=== PATIENT | male | born 1955 | race Caucasian/White ===

== ENCOUNTER → 2017-06-08 | Outpatient (CLI) | payer OTHER ==
[~2017-06-08] MED LIST: LIDOCAINE VISC 2% SOLN 15 ML UDC ONE
== END ==
LOC: WCC 09:05
PROVIDERS: ATTEND Family Medicine
DX: I87.331 Chronic venous hypertension (idiopathic) with ulcer and inflammation of right lower extremity (principal); L97.211 Non-pressure chronic ulcer of right calf limited to breakdown of skin; G89.29 Other chronic pain; R60.0 Localized edema; I87.2 Venous insufficiency (chronic) (peripheral); G90.09 Other idiopathic peripheral autonomic neuropathy; E03.9 Hypothyroidism, unspecified
CPT/HCPCS: 87071; 87075; 87186; 87205

== ENCOUNTER → 2017-06-15 | Outpatient (CLI) | payer OTHER ==
[~2017-06-15] MED LIST changes: -LIDOCAINE VISC 2% SOLN 15 ML UDC ONE; +MINERAL OIL/PETROLAT/GLYCERI 6OZ BTL ONE; +MUPIROCIN 2% OINT 22 GM TUBE ONE
== END ==
LOC: WCC 11:55
PROVIDERS: ATTEND Family Medicine
DX: I87.331 Chronic venous hypertension (idiopathic) with ulcer and inflammation of right lower extremity (principal); L97.211 Non-pressure chronic ulcer of right calf limited to breakdown of skin; G89.29 Other chronic pain; R60.0 Localized edema; I87.2 Venous insufficiency (chronic) (peripheral); G90.09 Other idiopathic peripheral autonomic neuropathy; E03.9 Hypothyroidism, unspecified

== ENCOUNTER → 2017-06-22 | Outpatient (CLI) | payer BC ==
[~2017-06-22] MED LIST changes: +LIDOCAINE VISC 2% SOLN 15 ML UDC ONE; -MINERAL OIL/PETROLAT/GLYCERI 6OZ BTL ONE
== END ==
LOC: WCC 10:01
PROVIDERS: ATTEND Family Medicine
DX: I87.331 Chronic venous hypertension (idiopathic) with ulcer and inflammation of right lower extremity (principal); L97.211 Non-pressure chronic ulcer of right calf limited to breakdown of skin; B95.7 Other staphylococcus as the cause of diseases classified elsewhere; G89.29 Other chronic pain; I87.2 Venous insufficiency (chronic) (peripheral); R60.0 Localized edema; E03.9 Hypothyroidism, unspecified; G90.09 Other idiopathic peripheral autonomic neuropathy

== ENCOUNTER 2024-06-23 11:17 | Emergency (ER) | payer BC, MEDICARE ==
[~2024-06-23] VITALS: Ht 162.6 cm; Wt 52.2 kg
[2024-06-23 11:41] VITALS: RESP 19
[2024-06-23] MEDS ORDERED: SODIUM CHLORIDE FLUSH 10 ML SYR IV PRN (12:15)
[2024-06-23 12:58] LABS: BASOPHILS % 1.9 % (0.0-1.0); HEMATOCRIT 26.5 % (38.2-49.6); HEMOGLOBIN 8.2 g/dL (14.0-18.0); LYMPHOCYTES # (AUTO) 0.4 (1.0-3.2); LYMPHOCYTES % 22.7 % (18.0-39.1); MEAN CORPUSCULAR HEMOGLOBIN 27.7 pg (28-32); MEAN CORPUSCULAR HGB CONC 30.9 g/dL (31-35); MEAN CORPUSCULAR VOLUME 89.5 fL (81-99); MONOCYTES # (AUTO) 0.2 (0.2-0.8); NEUTROPHILS % 62.4 % (38.7-80.0); RED BLOOD COUNT 2.96 x10e6/uL (4.3-5.7); RED CELL DISTRIBUTION WIDTH 13.4 % (11.7-14.4)
[2024-06-23 13:02] LABS: PLATELET COUNT 45 x10e3/uL (140-360); WHITE BLOOD COUNT 1.54 x10e3/uL (4.8-10.8)
[2024-06-23 13:12] LABS: CORONAVIRUS COVID-19 AG NEGATIVE (NEGATIVE); INFLUENZA A AG NEGATIVE (NEGATIVE); INFLUENZA B AG NEGATIVE (NEGATIVE)
[2024-06-23 13:15] LABS: ALBUMIN 3.2 g/dL (3.5-5.0); ALBUMIN/GLOBULIN RATIO 1.1 (0.8-2.0); ALKALINE PHOSPHATASE 149 IU/L (40-150); ANION GAP 14.1 mmol/L (8-16); BILIRUBIN,TOTAL 1.7 mg/dL (0.2-1.2); BLOOD UREA NITROGEN 14 mg/dL (7-26); BUN/CREATININE RATIO 13 (6-25); CALCIUM 8.6 mg/dL (8.4-10.2); CARBON DIOXIDE 24 mmol/L (22-29); CHLORIDE 104 mmol/L (98-107); CREATININE, SERUM 1.08 mg/dL (0.72-1.25); EST GLOMERULAR FILTRATION RATE 75 ML/MIN (>=60); GLUCOSE 89 mg/dL (74-118); POTASSIUM 4.1 mmol/L (3.5-5.1); SODIUM 138 mmol/L (136-145); TOTAL PROTEIN 6.2 g/dL (6.5-8.1)
[2024-06-23 13:16] LABS: ALANINE AMINOTRANSFERASE < 6 IU/L (0-55)
[2024-06-23 13:20] LABS: TROPONIN I 0.001 ng/mL (0-0.300)
[2024-06-23] MEDS: KETOROLAC TROMETHAMINE 30 MG/ML VIAL IV ONE (13:23)
[2024-06-23] MEDS ORDERED: MORPHINE 44 MG/1 ML PO (13:59)
[2024-06-23] MEDS ORDERED: MS CONTIN15 MG PO (14:11)
[2024-06-23 14:21] VITALS: PULSE 69; TEMP 98
[2024-06-23] MEDS ORDERED: SODIUM CHLORIDE 0.9% 1000ML 1,000 ML ONE (14:32)
[2024-06-23] MEDS: Morphine 4mg INJECTION 4 MG/ML INJ IV ONE (15:30)
[2024-06-23] MEDS: SODIUM CHLORIDE 0.9% 1000ML 1,000 ML IV ONE (15:40)
[2024-06-23 17:04] LABS: BILIRUBIN,URINE SMALL (NEGATIVE); CLARITY,URINE CLEAR (CLEAR); COLOR,URINE YELLOW (YELLOW); GLUCOSE, URINE NEGATIVE (NEGATIVE); KETONES,URINE TRACE (NEGATIVE); LEUKOCYTE ESTERASE ,URINE NEGATIVE (NEGATIVE); NITRITE,URINE NEGATIVE (NEGATIVE); PH,URINE 7.5 (5 - 7); PROTEIN,URINE DIPSTICK 2+ (NEGATIVE); URINE UROBILINOGEN 2 mg/dL (0.2 - 1)
[2024-06-23 17:15] LABS: BACTERIA,URINE RARE /HPF; EPITHELIAL CELLS,URINE FEW /LPF; HYALINE CASTS 0-1 (0-1)
[2024-06-23 17:16] LABS: MUCUS,URINE MANY (RARE)
[2024-06-23 18:17] VITALS: BP 115/84; PULSE 71; RESP 16; TEMP 98.6; O2SAT 95
== END 2024-06-23 19:00 ==
LOC: ER 11:33
DX: R60.9 Edema, unspecified (principal); D47.9 Neoplasm of uncertain behavior of lymphoid, hematopoietic and related tissue, unspecified; G62.9 Polyneuropathy, unspecified; D61.818 Other pancytopenia; R29.6 Repeated falls; Z11.52 Encounter for screening for COVID-19; R94.31 Abnormal electrocardiogram [ECG] [EKG]
CPT/HCPCS: 36415; 70450; 71045; 73502; 74176; 80053; 81001; 83880; 84484; 85025; 87428; 93005; 94760; 99284; J1885; J2270; J7030